=== PATIENT | male | born 1960 | race Caucasian/White ===

== ENCOUNTER 2016-06-30 17:55 | Observation (INO) | payer OTHER ==
[2016-06-30] MEDS ORDERED: ASPIRIN 81 MG CHEW PO STA (20:41)
[2016-06-30] MEDS ORDERED: NITROGLYCERIN SL TABS 0.4 MG TAB SUBLINGUAL STA (20:41)
[2016-06-30] MEDS ORDERED: SODIUM CHLORIDE 0.9% 500 ML IV STA (20:42)
--- NOTE | 2016-06-30 20:46 | ED ---
General Adult HPI - General Chief complaint: Recheck/Abnormal Lab/Rx Stated complaint: side pain Time Seen by Provider: 06/30/16 20:37 Source: patient, RN notes reviewed Mode of arrival: ambulatory Limitations: no limitations - History of Present Illness Initial comments: 54-year-old male presents to the emergency department with a chief complaint of 2 complaints. First he states he had a cough at home a few days ago he's had this right lower chest pain that tender to touch along the rib cage. Patient states he is just been feeling kind of tired and off. Patient denies any fevers. Patient states that then today he developed this chest heaviness along with shortness of breath. Patient states that he has also developed nausea vomiting in the waiting room. Patient denies any fevers at home. Patient states that he does not have any abdominal pain. Patient denies any diarrhea. Patient states he doesn't have a significant health history he does have high cholesterol and thyroid problems. Patient denies any history of heart issues. Patient states that he was concerned due to the coughing is likely originally came in but now he developed chest pain and shortness of breath. Patient states it is not currently having any other symptoms at this time. Patient denies any recent fever, chills, back pain, abdominal pain, numbness or tingling, dysuria or hematuria, constipation or diarrhea, headaches or visual changes, or any other current symptoms. - Related Data Allergies Allergy/AdvReac Type Severity Reaction Status Date / Time No Known Allergies Allergy Verified 06/30/16 20:31 Review of Systems ROS Statement: Those systems with pertinent positive or pertinent negative responses have been documented in the HPI. ROS Other: All systems not noted in ROS Statement are negative. Past Medical History Past Medical History: GERD/Reflux, Hyperlipidemia, Thyroid Disorder History of Any Multi-Drug Resistant Organisms: None Reported Past Psychological History: No Psychological Hx Reported Smoking Status: Current every day smoker Past Alcohol Use History: None Reported Past Drug Use History: None Reported General Exam - General Exam Comments Initial Comments: General: The patient is awake and alert, in no distress, and does not appear acutely ill. Diaphoretic on examination. Eye: Pupils are equal, round and reactive to light, extra-ocular movements are intact; there is normal conjunctiva bilaterally. No signs of icterus. Ears, nose, mouth and throat: There are moist mucous membranes and no oral lesions. Neck: The neck is supple, there is no tenderness. Cardiovascular: There is a regular rate and rhythm. No murmur, rub or gallop is appreciated. Respiratory: Lungs are clear to auscultation, respirations are non-labored, breath sounds are equal. No wheezes, stridor, rales, or rhonchi. In his vision along the right lower lateral rib cage. Gastrointestinal: Soft, non-distended, non-tender abdomen without masses or organomegaly noted. There is no rebound or guarding present. No CVA tenderness. Bowel sounds are unremarkable. Back: There is no tenderness to palpation in the midline. There is no obvious deformity. No rashes noted. Musculoskeletal: Normal ROM, no tenderness, There is no pedal edema. There is no calf tenderness or swelling. Sensation intact. Pulses equal bilaterally 2+. Neurological: CN II-XII intact, There are no obvious motor or sensory deficits. Coordination appears grossly intact. Speech is normal. Skin: Skin is warm and dry and no rashes or lesions are noted. Psychiatric: Cooperative, appropriate mood & affect, normal judgment. Limitations: no limitations Course Vital Signs 06/30/16 06/30/16 06/30/16 18:40 21:00 21:22 Temperature 97.0 F L 97.1 F L Pulse Rate 73 71 78 Respiratory 20 18 18 Rate Blood Pressure 148/102 172/82 143/75 O2 Sat by Pulse 98 98 98 Oximetry EKG Findings - EKG Comments: EKG Findings:: normal sinus rhythm with marked sinus arrhythmia, T-wave inversion in V3 bpm, normal axis, no atopy, no S-T depressions or elevations, Medical Decision Making - Medical Decision Making 55-year-old male originally presented due to right-sided chest pain after coughing at home he has since developed chest pain shortness of breath as well as diaphoretic on exam with nausea and vomiting. This imaging EKG was ordered immediately exiting the patient's room which was at 2041. Patient has remained afebrile here. At this time patient there is concern that his chest pain shortness of breath may be associated to acute cardiac event. The patient's right-sided chest pain is most likely from a costal chondral type pain from the patient's coughing a few days ago however the central chest pain or shortness of breath is concerning for other causes. Patient is cold from the emergency department however he has been tested multiple times and there is no fever. At this time we will admit the patient for angina rule out. This was discussed with the patient and he is in agreement the plan. All his questions have been answered. Workup which agrees to the admission. - Lab Data Result diagrams: 06/30/16 21:20 06/30/16 21:20 Lab Results 06/30/16 06/30/16 06/30/16 Range/Units 20:48 21:20 21:20 WBC 13.1 H (3.8-10.6) k/uL RBC 5.00 (4.30-5.90) m/uL Hgb 16.8 (13.0-17.5) gm/dL Hct 48.5 (39.0-53.0) % MCV 97.0 (80.0-100.0) fL MCH 33.7 (25.0-35.0) pg MCHC 34.7 (31.0-37.0) g/dL RDW 14.0 (11.5-15.5) % Plt Count 133 L (150-450) k/uL Neutrophils % 82 % Lymphocytes % 14 % Monocytes % 3 % Eosinophils % 0 % Basophils % 0 % Neutrophils # 10.7 H (1.3-7.7) k/uL Lymphocytes # 1.9 (1.0-4.8) k/uL Monocytes # 0.4 (0-1.0) k/uL Eosinophils # 0.0 (0-0.7) k/uL Basophils # 0.1 (0-0.2) k/uL PT (9.0-12.0) sec INR (<1.1) APTT (22.0-30.0) sec Sodium (137-145) mmol/L Potassium (3.5-5.1) mmol/L Chloride (98-107) mmol/L Carbon Dioxide (22-30) mmol/L Anion Gap mmol/L BUN (9-20) mg/dL Creatinine (0.66-1.25) mg/dL Est GFR (MDRD) Af Amer (>60 ml/min/1.73 sqM) Est GFR (MDRD) Non-Af (>60 ml/min/1.73 sqM) Glucose (74-99) mg/dL POC Glucose (mg/dL) 150 H (75-99) mg/dL POC Glu Assembler Brazer ID Jenny De Dios Calcium (8.4-10.2) mg/dL Magnesium (1.6-2.3) mg/dL Total Bilirubin (0.2-1.3) mg/dL AST (17-59) U/L ALT (21-72) U/L Alkaline Phosphatase (38-126) U/L Total Creatine Kinase 81 (55-170) U/L CK-MB (CK-2) 0.5 (0.0-2.4) ng/mL CK-MB (CK-2) Rel Index 0.6 Troponin I <0.012 (0.000-0.034) ng/mL Total Protein (6.3-8.2) g/dL Albumin (3.5-5.0) g/dL Influenza Type A RNA (Not Detectd) Influenza Type B (PCR) (Not Detectd) 06/30/16 06/30/16 06/30/16 Range/Units 21:20 21:20 21:40 WBC (3.8-10.6) k/uL RBC (4.30-5.90) m/uL Hgb (13.0-17.5) gm/dL Hct (39.0-53.0) % MCV (80.0-100.0) fL MCH (25.0-35.0) pg MCHC (31.0-37.0) g/dL RDW (11.5-15.5) % Plt Count (150-450) k/uL Neutrophils % % Lymphocytes % % Monocytes % % Eosinophils % % Basophils % % Neutrophils # (1.3-7.7) k/uL Lymphocytes # (1.0-4.8) k/uL Monocytes # (0-1.0) k/uL Eosinophils # (0-0.7) k/uL Basophils # (0-0.2) k/uL PT 10.4 (9.0-12.0) sec INR 1.0 (<1.1) APTT 24.0 (22.0-30.0) sec Sodium 141 (137-145) mmol/L Potassium 3.8 (3.5-5.1) mmol/L Chloride 106 (98-107) mmol/L Carbon Dioxide 22 (22-30) mmol/L Anion Gap 13 mmol/L BUN 11 (9-20) mg/dL Creatinine 1.11 (0.66-1.25) mg/dL Est GFR (MDRD) Af Amer >60 (>60 ml/min/1.73 sqM) Est GFR (MDRD) Non-Af >60 (>60 ml/min/1.73 sqM) Glucose 157 H (74-99) mg/dL POC Glucose (mg/dL) (75-99) mg/dL POC Glu Assembler Brazer ID Calcium 9.6 (8.4-10.2) mg/dL Magnesium 1.8 (1.6-2.3) mg/dL Total Bilirubin 1.1 (0.2-1.3) mg/dL AST 42 (17-59) U/L ALT 69 (21-72) U/L Alkaline Phosphatase 219 H (38-126) U/L Total Creatine Kinase (55-170) U/L CK-MB (CK-2) (0.0-2.4) ng/mL CK-MB (CK-2) Rel Index Troponin I (0.000-0.034) ng/mL Total Protein 8.1 (6.3-8.2) g/dL Albumin 4.5 (3.5-5.0) g/dL Influenza Type A RNA Not Detected (Not Detectd) Influenza Type B (PCR) Not Detected (Not Detectd) - Radiology Data Radiology results: report reviewed, image reviewed Disposition Clinical Impression: Unstable angina, Right-sided chest wall pain, Diaphoresis Disposition: ADMITTED IP TO THIS [facility] Condition: Stable Referrals: Malia Nam MD [Primary Care Provider] - 1-2 days Time of Disposition: 22:21 Decision Date: 06/30/16 Decision Time: 22:17
[2016-06-30 20:51] LABS: Glucose,Whole Blood 150 mg/dL (75-99)
--- NOTE | 2016-06-30 21:35 | XR ---
EXAMINATION TYPE: XR chest 2V DATE OF EXAM: 06/30/2016 9:29 PM COMPARISON: 11/01/2010 HISTORY: Weakness and chest pressure TECHNIQUE: Frontal and lateral views of the chest are obtained. FINDINGS: Heart and mediastinum are normal. Lungs are clear. Diaphragm is normal. Bony thorax is int act. There is suggestion of osteosclerosis in the thoracic vertebral bodies. IMPRESSION: No active cardiopulmonary disease. Possible osteosclerosis in the thoracic spine that is new compared to old exam. Clinical correlation is recommended.
[2016-06-30 21:38] LABS: Basophils # (A) 0.1 k/uL (0-0.2); Basophils % (A) 0 %; CH 35.1; CHCM 36.3; Eosinophils % (A) 0 %; HCT 48.5 % (39.0-53.0); HDW 2.75; HGB 16.8 gm/dL (13.0-17.5); Luc # (Auto) 0.11; Luc % (Auto) 1; Lymphocytes # (A) 1.9 k/uL (1.0-4.8); Lymphocytes % (A) 14 %; MCH 33.7 pg (25.0-35.0); MCHC 34.7 g/dL (31.0-37.0); Mean Platelet Volume 7.2; Monocytes # (A) 0.4 k/uL (0-1.0); Monocytes % (A) 3 %; Neutrophils # (A) 10.7 k/uL (1.3-7.7); Neutrophils % (A) 82 %; WBC 13.1 k/uL (3.8-10.6); WBC (Perox) 13.11
[2016-06-30 21:44] LABS: Prothrombin Time 10.4 sec (9.0-12.0)
[2016-06-30 21:47] LABS: ALT 69 U/L (21-72); AST 42 U/L (17-59); Alkaline Phosphatase 219 U/L (38-126); Anion Gap 13 mmol/L; Blood Urea Nitrogen 11 mg/dL (9-20); Calcium 9.6 mg/dL (8.4-10.2); Carbon Dioxide 22 mmol/L (22-30); Chloride 106 mmol/L (98-107); Glucose 157 mg/dL (74-99); Magnesium 1.8 mg/dL (1.6-2.3); Non-African American GFR(MDRD) >60 (>60 ml/min/1.73 sqM); Potassium 3.8 mmol/L (3.5-5.1); Sodium 141 mmol/L (137-145); Total Bilirubin 1.1 mg/dL (0.2-1.3); Total Protein 8.1 g/dL (6.3-8.2)
[2016-06-30 21:53] LABS: Creatine Kinase 81 U/L (55-170)
[2016-06-30 22:06] LABS: Creatine Kinase MB 0.5 ng/mL (0.0-2.4); Troponin I <0.012 ng/mL (0.000-0.034)
[2016-06-30] MEDS ORDERED: NITROGLYCERIN SL TABS 0.4 MG TAB SUBLINGUAL PRN (22:17)
[2016-06-30] MEDS ORDERED: HEPARIN SODIUM,PORCINE 5,000 UNIT/ML 1 ML VIAL IV ONE (22:17)
[2016-06-30] MEDS ORDERED: ACETAMINOPHEN TAB 500 MG TAB PO STA (22:21)
[2016-06-30] MEDS ORDERED: HEPARIN SODIUM,PORCINE/D5W PMX 25,000 UNIT in DEXTROSE/WATER 1 500ML.BAG IV SCH (22:30)
[2016-06-30] MEDS ORDERED: HEPARIN SODIUM,PORCINE 5,000 UNIT/ML 1 ML VIAL IV PRN (23:13)
[2016-07-01 00:10] VITALS: RESP 18
[2016-07-01 00:19] VITALS: BMI 33.0
[2016-07-01] MEDS ORDERED: ONDANSETRON 4 MG/2 ML VIAL IVP PRN (00:26)
[2016-07-01] MEDS: NITROGLYCERIN OINT 1 INCH/GM PACKET TOPICAL SCH ×2 (02:07→06:10)
[2016-07-01] MEDS ORDERED: ALPRAZolam 0.5 MG TAB PO PRN (04:02)
[2016-07-01] MEDS ORDERED: HYDROcodone/APAP 5-325MG 1 EACH TAB PO PRN (04:02)
[2016-07-01 05:07] LABS: Cholesterol 237 mg/dL (<200); HDL Cholesterol 47 mg/dL (40-60); Triglycerides 113 mg/dL (<150)
[2016-07-01 06:50] LABS: Appearance,Urine Clear (Clear); Bilirubin,Urine Negative (Negative); Glucose,Urine (UA) Negative (Negative); Ketones,Urine Negative (Negative); Leukocyte Esterase,Urine Negative (Negative); Mucus,Urine Rare /hpf; Nitrite,Urine Negative (Negative); Particle Count 1315; Protein,Urine 1+ (Negative); RBC,Urine 2 /hpf (0-5); Specific Gravity,Urine 1.026 (1.001-1.035); UA Billing (MACRO vs. MICRO) MICRO; WBC,Urine 1 /hpf (0-5)
[2016-07-01 08:24] LABS: Creatine Kinase 224 U/L (55-170)
[2016-07-01 08:37] LABS: Troponin I <0.012 ng/mL (0.000-0.034)
--- NOTE | 2016-07-01 08:48 | CONS ---
DATE OF CONSULTATION: CHIEF COMPLAINT: Chest pain. Isma is a 55-year-old gentleman with no significant past medical history came to hospital complaining of chest discomfort. It is a sharp right-sided chest pain that is reproducible. He also has been complaining of feeling fatigued and tired on and off and had mild shortness of breath also. Since admission, he is doing well and is free of symptoms. His symptoms have been going on for the last few days. He had one set of troponin that is negative and an EKG was within normal limits. A chest x-ray was within normal limits. Past medical history is negative for hypertension, diabetes, dyslipidemia. Medications are as charted. Family history is negative for premature coronary artery disease. SOCIAL HISTORY: Denies smoking, EtOH abuse, or drug abuse. REVIEW OF SYSTEMS: HEENT: Unremarkable. CARDIAC: As described above. RESPIRATORY: Negative. GI: Negative. GENITOURINARY: Negative. ALLERGY/IMMUNOLOGY: Negative. SKIN: Negative. MUSCULOSKELETAL: Significant for arthritis. PSYCHOSOCIAL: Negative. ENDOCRINE: Negative. DERMATOLOGIC: Negative. CONSTITUTIONAL: Negative. HEMATOLOGICAL: Negative. ONCOLOGICAL: Negative. MUSCULOSKELETAL: Significant for reproducible pain. The rest of the system review is not relevant. One set of cardiac enzymes is negative. EKG is normal. ASSESSMENT: Atypical chest pain, probably musculoskeletal and reproducible. I will stop the heparin, obtain a 2-D echo on him to assess his wall motion and LV function and schedule him for a stress test. If this workup is negative, we can and discharge him home and set up an outpatient followup.
[2016-07-01] MEDS ORDERED: ASPIRIN 325 MG TAB PO SCH (09:00)
[2016-07-01 09:37] LABS: Creatine Kinase 343 U/L (55-170)
[2016-07-01 09:50] LABS: Troponin I <0.012 ng/mL (0.000-0.034)
--- NOTE | 2016-07-01 11:05 | ECHOF ---
Referral Reason: MEASUREMENTS -------- HEIGHT: 177.8 cm WEIGHT: 104.3 kg BP: 119/77 RVIDd: 3.4 cm (< 3.3) IVSd: 1.3 cm (0.6 - 1.1) LVIDd: 4.8 cm (3.9 - 5.3) LVPWd: 1.4 cm (0.6 - 1.1) IVSs: 1.8 cm LVIDs: 3.2 cm LVPWs: 1.8 cm LA Diam: 3.3 cm (2.7 - 3.8) LAESV Index (A-L): 21.82 ml/m Ao Diam: 3.7 cm (2.0 - 3.7) LA Diam: 2.9 cm (2.7 - 3.8) MV EXCURSION: 21.388 mm (> 18.000) MV EF SLOPE: 133 mm/s (70 - 150) EPSS: 0.7 cm MV E Aubrey: 0.78 m/s MV DecT: 172 ms MV A Aubrey: 0.92 m/s MV E/A Ratio: 0.85 FINDINGS -------- Resting tachycardia (HR>100bpm). This was a technically good study. The left ventricular size is normal. There is moderate concentric left ventricular hypertrophy. Overall left ventricular systolic function is normal with, an EF between 60 - 65 %. The right ventricle is mildly enlarged. The left atrium is normal in size. Normal LA size by volume 22+/-6 ml/m2. The right atrium is normal in size. The aortic valve was not well visualized. The mitral valve is normal. The tricuspid valve appears structurally normal. The pulmonic valve was not well visualized. The aortic root is dilated measuring 3.7cm. There is no pericardial effusion. CONCLUSIONS -------- 1. Resting tachycardia (HR>100bpm). 2. The tricuspid valve appears structurally normal. 3. The pulmonic valve was not well visualized. 4. The aortic root is dilated measuring 3.7cm. 5. There is no pericardial effusion. 6. This was a technically good study. 7. The left ventricular size is normal. 8. There is moderate concentric left ventricular hypertrophy. 9. Overall left ventricular systolic function is normal with, an EF between 60 - 65 %. 10. The right ventricle is mildly enlarged. 11. Normal LA size by volume 22+/-6 ml/m2. 12. The aortic valve was not well visualized. 13. The mitral valve is normal. OYSTER CULLER: Louann Lee RDCS
[2016-07-01 12:00] VITALS: BP 135/78; PULSE 91; TEMP 97.8
--- NOTE | 2016-07-01 12:11 | EST ---
DATE OF SERVICE: 07/01/2016 AGE: 55Y SEX: M HT: 71 WT: 230 lbs. Protocol David: X Other: Stage: II Dur. of Exercise: 3:55 *Heart Rate Blood Pressure *Rest: 103 Rest: 122/83 * *Max. Achieved: 143 Maximum BP: 168/77 85% PMHR: 142 100% PMHR: 167 *METS: 4.4 INDICATION OF THE STUDY: Chest pain. MEDICATIONS: STRESS DATA: Pretesting physical examination showed a heart rate of 103, pressure is 122/83 mmHg. Baseline EKG shows sinus rhythm. The patient exercised on treadmill according to David protocol for a total of 3 minutes and 55 seconds and achieved 4.4 METs. Max heart rate was 143, which is about 85% of maximum predicted heart rate. Maximum blood pressure was 168/77 mmHg. Clinically, the patient did not have any symptoms of chest pain or discomfort and the EKG did not show any significant ST or T wave abnormalities consistent with ischemia. CONCLUSION: 1. Poor exercise capacity. 2. Normal EKG in response to exercise.
--- NOTE | 2016-07-01 12:18 | P.HPIM ---
History of Present Illness H&P Date: 07/01/16 (DC summary as well) Chief Complaint: Chest pain 54-year-old gentleman with history of tobacco use comes in the hospital with episode of chest pain that started 2 days prior to admission. Patient was apparently smoking a cigarette during the onset of symptoms. Patient noted some pressure initially on the right side of the chest thereafter moved to the left had the pain for another 4 hours. Patient thereafter improved however had a recurrent episode of chest pain yesterday and hence came in the hospital for ongoing care. In the ER EKG was negative for ST-T wave changes. Initial troponin was negative. However with patient's risk factors patient was admitted to rule out a ACS. Patient was monitored on the telemetry. No abnormalities were noted. Cardiac and those were negative. In the time of my examination patient stated that he had these episodes of chest pain while he was smoking a cigarette, doesn't worsen with deep breathing denies having any headaches blurry vision radiating symptoms or alleviating or exacerbating factors. No other associated complaints are reported. Patient is symptom-free at this time. Review of Systems All systems: negative (Noted in HPI) Past Medical History Past Medical History: GERD/Reflux, Hyperlipidemia, Thyroid Disorder History of Any Multi-Drug Resistant Organisms: None Reported Past Surgical History: No Surgical Hx Reported Past Anesthesia/Blood Transfusion Reactions: No Reported Reaction Past Psychological History: No Psychological Hx Reported Smoking Status: Current every day smoker Past Alcohol Use History: None Reported Past Drug Use History: None Reported Medications and Allergies Home Medications Medication Instructions Recorded Confirmed Type QUEtiapine FUMARATE [SEROquel] 600 mg PO 07/01/16 History Allergies Allergy/AdvReac Type Severity Reaction Status Date / Time No Known Allergies Allergy Verified 06/30/16 20:31 Physical Exam Vitals: Vital Signs Temp Pulse Pulse Resp BP BP Pulse Ox 07/01/16 11:58 97.8 F 91 18 135/78 96 07/01/16 08:00 97.7 F 105 H 18 119/77 97 07/01/16 04:00 98.1 F 89 18 169/85 94 L 07/01/16 01:49 79 18 07/01/16 00:00 97.8 F 68 18 169/89 97 06/30/16 23:07 98 F 80 20 140/68 97 Intake and Output 06/30/16 07/01/16 07/01/16 22:59 06:59 14:59 Intake Total 137 Balance 137 Intake: Intake, IV Titration 137 Amount Heparin Sodium,Porcine/ 137 D5w Pmx 25,000 unit In Dextrose/Water 1 500ml. bag @ 9.586 UNITS/KG/HR 20 mls/hr IV .Q24H [place] Rx #:[id number] Other: # Voids 1 Weight 104.326 kg Physical exam Gen. appearance oriented 3 in no distress Neck is supple no JVD Head is atraumatic normocephalic pupils are equal round reactive light and accommodation Lungs good air entry clear to auscultation no rhonchi or wheezing Heart S1-S2 heard regular rate and rhythm no murmurs appreciated Abdomen is soft nontender no organomegaly bowel sounds are intact Neurologically cranial nerves II-12 grossly intact no focal motor or sensory deficits noted Skin no abnormalities appreciated Results CBC & Chem 7: 06/30/16 21:20 06/30/16 21:20 Labs: Abnormal Lab Results - Last 24 Hours (Table) 07/01/16 07/01/16 07/01/16 Range/Units 04:30 04:30 06:15 Total Creatine Kinase 224 H (55-170) U/L Cholesterol 237 H (<200) mg/dL LDL Cholesterol, Calc 167 H (0-99) mg/dL Urine Protein 1+ H (Negative) Urine Mucus Rare H (None) /hpf 07/01/16 Range/Units 08:58 Total Creatine Kinase 343 H (55-170) U/L Cholesterol (<200) mg/dL LDL Cholesterol, Calc (0-99) mg/dL Urine Protein (Negative) Urine Mucus (None) /hpf Thrombosis Risk Factor Assmnt - Choose All That Apply Each Factor Represents 1 point: Age 41-60 years Thrombosis Risk Factor Assessment Total Risk Factor Score: 1 Thrombosis Risk Factor Assessment Level: Low Risk Assessment and Plan Plan: #1 atypical chest pain ACS is ruled out #2 ongoing tobacco use #3 hypothyroidism #4 family history of premature heart disease #5: Polyp in the colon Plan Patient will undergo stress is negative patient can be discharged home. No new medications started. To continue aspirin therapy. Smoking cessation is discussed.
== END 2016-07-01 13:43 | disposition home or self-care (01) ==
LOC: EC 17:55 → 3OBS 22:56
PROVIDERS: ADMIT Internal Medicine; ATTEND Internal Medicine
DX: R07.89 Other chest pain (principal); E03.9 Hypothyroidism, unspecified; Z79.82 Long term (current) use of aspirin; R05 Cough; R53.83 Other fatigue; R06.02 Shortness of breath; F17.210 Nicotine dependence, cigarettes, uncomplicated; R61 Generalized hyperhidrosis; R11.2 Nausea with vomiting, unspecified
CPT/HCPCS: 36415; 93005; 93017; 93306; 80061; 80053; 82550 ×2; 82553 ×2; 83735; 84484 ×2; 85025; 85730 ×2; 85610; 81001; 87502; 71020; 99285; 96365; 96376; 96361 ×2; G0378 ×2; J1644 ×3; 96366

== ENCOUNTER → 2017-08-19 | Outpatient (CLI) | payer OTHER ==
--- NOTE | 2017-08-19 16:36 | CTL ---
EXAMINATION TYPE: CT Low Dose Lung DATE OF EXAM ORDERED: 08/19/2017 HISTORY: 57-year-old male person history of tobacco use/nicotine dependence. Lung cancer screening CT DLP: [address] CTDI: 2.44 mGy Automated exposure control for dose reduction was used. SCREENING VISIT: Baseline COMPARISON: None TECHNIQUE: Low dose computed tomography scan was performed through the chest at 1 mm thick sections a nd reconstructed images in the coronal and sagittal plane at 1 mm thick sections. Coronal MIP reconst ruction generated. CT DIAGNOSTIC QUALITY: Limited, but interpretable FINDINGS: Heart is normal size without pericardial effusion. Ascending aorta is ectatic and 3.8 cm with conventional arch vessel branching anatomy. Mild bilateral gynecomastia. No thoracic lymphadenopathy by CT size criteria. Moderate diffuse bronchial wall thickening. No consolidation or pleural effusion. Strandy atelectasis at the left base. There is a 1.2 cm left lower lobe pulmonary nodule. No other suspicious pulmonary nodule or mass is seen. Excessive noise artifact limiting assessment of the upper abdomen. Borderline hydropic gallbladder me asuring 4.0 cm wide likely due to fasting state and can be correlated clinically. Bones: A somewhat sclerotic appearance throughout the osseous structures IMPRESSION: 1. LungRADS 4A (suspicious, 5-15% chance of malignancy); a 1.2 cm left lower lobe pulmonary nodule. 2. Moderate diffuse bronchial wall thickening could represent bronchitis or uncontrolled asthma. RECOMMENDATION: 1. Three-month follow-up with low-dose CT. Alternatively, consideration can be given to PET CT now. 2. Smoking cessation. FOLLOW UP CT CHEST RECOMMENDATION: [address] LUNG RAD: Lung-Rad 4A Suspicious
== END | disposition home or self-care (01) ==
LOC: RADCTMAIN 15:56
PROVIDERS: ATTEND Internal Medicine
DX: Z12.2 Encounter for screening for malignant neoplasm of respiratory organs (principal); F17.200 Nicotine dependence, unspecified, uncomplicated; R91.1 Solitary pulmonary nodule; J98.09 Other diseases of bronchus, not elsewhere classified

== ENCOUNTER → 2017-08-25 | Outpatient (CLI) | payer OTHER ==
--- NOTE | 2017-08-26 11:32 | ECHOF ---
Referral Reason:M79.89 Swelling of both lower extremities MEASUREMENTS -------- HEIGHT: 177.8 cm WEIGHT: 113.4 kg BP: 160/97 RVIDd: 2.4 cm (< 3.3) IVSd: 1.1 cm (0.6 - 1.1) LVIDd: 3.6 cm (3.9 - 5.3) LVPWd: 1.1 cm (0.6 - 1.1) IVSs: 1.5 cm LVIDs: 2.4 cm LVPWs: 1.4 cm LAESV Index (A-L): 12.50 ml/m Ao Diam: 3.3 cm (2.0 - 3.7) AV Cusp: 2.0 cm (1.5 - 2.6) LA Diam: 2.4 cm (2.7 - 3.8) MV E Aubrey: 0.76 m/s MV DecT: 459 ms MV A Aubrey: 0.81 m/s MV E/A Ratio: 0.94 RAP: 5.00 mmHg RVSP: 10.49 mmHg FINDINGS -------- Sinus rhythm. This was a technically adequate study. The left ventricular size is normal. There is borderline concentric left ventricular hypertrophy. Overall left ventricular systolic function is normal with, an EF between 55 - 60 %. The right ventricle is normal in size and function. Normal LA size by volume 22+/-6 ml/m2. The right atrium is normal in size. The aortic valve was not well visualized. There is no evidence of aortic regurgitation. There is no evidence of aortic stenosis. Mild mitral annular calcification present. There is trace to mild mitral regurgitation. Trace tricuspid regurgitation present. Right ventricular systolic pressure is normal at < 35 mmHg. There is no evidence of pulmonary hypertension. The pulmonic valve was not well visualized. The aortic root size is normal. Normal inferior vena cava with normal inspiratory collapse consistent with estimated right atrial pre ssure of 5 mmHg. There is no pericardial effusion. CONCLUSIONS -------- 1. Sinus rhythm. 2. This was a technically adequate study. 3. The left ventricular size is normal. 4. There is borderline concentric left ventricular hypertrophy. 5. Overall left ventricular systolic function is normal with, an EF between 55 - 60 %. 6. Normal LA size by volume 22+/-6 ml/m2. 7. The aortic valve was not well visualized. 8. Mild mitral annular calcification present. 9. There is trace to mild mitral regurgitation. 10. Trace tricuspid regurgitation present. 11. Right ventricular systolic pressure is normal at < 35 mmHg. 12. There is no evidence of pulmonary hypertension. 13. The pulmonic valve was not well visualized. 14. The aortic root size is normal. 15. There is no pericardial effusion. BRICK EXTRUDER OPERATOR: John Ashraf RDCS
== END | disposition home or self-care (01) ==
LOC: RADECHMAIN 15:45
PROVIDERS: ATTEND Internal Medicine
DX: I51.7 Cardiomegaly (principal); I34.0 Nonrheumatic mitral (valve) insufficiency
CPT/HCPCS: 93306

== ENCOUNTER → 2017-09-03 | Outpatient (CLI) | payer OTHER ==
--- NOTE | 2017-09-03 16:48 | PE ---
EXAMINATION TYPE: PET CT fusion skull to thigh DATE OF EXAM: 09/03/2017 COMPARISON: Low dose lung screening CT August 19, 2017 HISTORY: Abnormal CT, solitary pulmonary nodule TECHNIQUE: Following the intravenous administration of 10.4 mCi of F-18 FDG, whole body images are p erformed from the skull base to the midthigh. Images are reviewed on the computer in the coronal, ax ial, and sagittal planes. Reconstructed rotating images are created on independent workstation and r eviewed on the computer. A noncontrast CT is performed in conjunction with the PET scan. SCAN: Initial Scan FINDINGS: SKULL BASE AND NECK: No suspicious hypermetabolic uptake is present CHEST, MEDIASTINUM, AND HILAR REGION: Corresponding to recent CT there is 1.2 x 1.0 cm nodule in the left lower lobe axial image 107 that is ametabolic. Hounsfield units noted average 35. No areas of suspicious hypermetabolic uptake in the thorax are identified. ABDOMEN AND PELVIS: No suspicious hypermetabolic uptake in the abdomen or pelvis is seen. OSSEOUS STRUCTURES: No suspicious hypermetabolic uptake is present. OTHER CT: Bilateral gynecomastia is present. Prominent left hepatic lobe which is normal variant in the liver is incidentally noted. Normal-appearing appendix from cecum is incidentally noted. Slight S-shaped scoliosis of the spine is present. There is multilevel spurring in the thoracic spine noted. There is prominent spurring and disc space narrowing at lumbosacral junction. IMPRESSION: A 1.2 x 1.0 cm left lower lobe nodule is redemonstrated without suspicious hypermetabolic uptake suggesting benign etiology. No suspicious hypermetabolic uptake is seen to suggest malignancy .
== END ==
LOC: RADPETMAIN 12:12
PROVIDERS: ATTEND Internal Medicine
DX: R91.1 Solitary pulmonary nodule (principal)
CPT/HCPCS: 78815; A9552